=== PATIENT | female | born 1945 | race Caucasian/White ===

== ENCOUNTER 2025-08-13 15:02 | Observation (INO) | payer OTHER ==
[2025-08-13] MEDS ORDERED: METHOCARBAMOL 500 MG TABLET ONE (16:18)
[2025-08-13] MEDS ORDERED: LIDOCAINE 5% TOPICAL PATCH ONE (16:19)
[2025-08-13 16:40] LABS: ABSOLUTE IMMATURE GRANULOCYTES 0.02 x10^3/uL (0.0-0.031); BASOPHILS # 0.01 x10^3/uL (0.01-0.08); EOSINOPHIL % 0.0 % (0.7-5.8); EOSINOPHILS # 0.00 x10^3/uL (0.04-0.36); MCHC 31.5 g/dl (32.2-35.5); MEAN CELL VOLUME 95.4 fl (79.4-94.8); MEAN PLT VOLUME 10.4 fl (9.4-12.3); MONOCYTE # 1.20 x10^3/uL (0.24-0.86); MONOCYTE % 11.5 % (4.7-12.5); RDW 13.4 % (12.4-16.6)
[2025-08-13] MEDS: METHOCARBAMOL 500 MG TABLET PO ONE (16:40)
[2025-08-13] MEDS: LIDOCAINE 5% TOPICAL PATCH TP ONE (16:40)
[2025-08-13 17:02] LABS: GLUCOSE,RANDOM 128.0 mg/dL (74-106); TOT PROT 8.3 g/dl (6.4-8.2)
[2025-08-13 17:03] LABS: CO2 26.0 mmol/L (21-32)
[2025-08-13 17:05] LABS: ALK PHOS 67.0 U/L (40-150)
[2025-08-13 17:08] LABS: CREATININE 1.9 mg/dL (0.55-1.3); SGOT/AST 23.0 U/L (5-34); SGPT/ALT 13.0 U/L (0-55)
[2025-08-13 18:40] LABS: URINE APPEARANCE CLEAR; URINE BILIRUBIN NEGATIVE (NEGATIVE); URINE COLOR YELLOW; URINE GLUCOSE (UA) NEGATIVE (NEGATIVE); URINE KETONE NEGATIVE (NEGATIVE); URINE LEUK ESTERASE NEGATIVE (NEGATIVE); URINE NITRITE NEGATIVE (NEGATIVE); URINE PROTEIN NEGATIVE (NEGATIVE); URINE UROBILINOGEN 0.2 mg/dL (0.2-1.0)
[2025-08-13] MEDS ORDERED: MORPHINE SULFATE 2 MG/ML SYRINGE IVPUSH PRN (20:54)
[2025-08-13 22:32] VITALS: RESP 18
[2025-08-13] MEDS: SODIUM CHLORIDE 1,000 ML IV SCH (22:36)
[2025-08-13] MEDS: ATORVASTATIN CA 10 MG TABLET (FP) PO SCH (22:36)
[2025-08-13] MEDS: LIDOCAINE PATCH REMOVAL MC SCH (22:37)
[2025-08-13] MEDS: HEPARIN NA (PORCINE) 5,000 UNITS/ML 1ML VIAL SQ SCH (22:37)
[2025-08-13] MEDS: ACETAMINOPHEN 1000 MG/100 ML BAG IVPB SCH (22:37)
[2025-08-14 02:00] VITALS: BMI 28.1
[2025-08-14 09:32] LABS: ABSOLUTE IMMATURE GRANULOCYTES 0.03 x10^3/uL (0.0-0.031); BASOPHILS # 0.01 x10^3/uL (0.01-0.08); EOSINOPHIL % 0.7 % (0.7-5.8); EOSINOPHILS # 0.06 x10^3/uL (0.04-0.36); MCHC 31.2 g/dl (32.2-35.5); MEAN CELL VOLUME 95.7 fl (79.4-94.8); MEAN PLT VOLUME 10.7 fl (9.4-12.3); MONOCYTE # 0.78 x10^3/uL (0.24-0.86); MONOCYTE % 9.1 % (4.7-12.5); RDW 13.4 % (12.4-16.6)
[2025-08-14 09:46] VITALS: BP 98/41; PULSE 66; TEMP 97.7
[2025-08-14] MEDS ORDERED: ENOXAPARIN NA (PORCINE) 40 MG/0.4 ML DISP.SYRIN SQ SCH (10:00)
[2025-08-14 11:27] LABS: GLUCOSE,RANDOM 150.0 mg/dL (74-106); TOT PROT 6.5 g/dl (6.4-8.2)
[2025-08-14 11:28] LABS: CO2 23.0 mmol/L (21-32)
[2025-08-14 11:30] LABS: ALK PHOS 51.0 U/L (40-150)
[2025-08-14 11:32] LABS: LDH 147.0 U/L (84-246); SGPT/ALT 10.0 U/L (0-55)
[2025-08-14 11:33] LABS: CREATININE 2.1 mg/dL (0.55-1.3); SGOT/AST 23.0 U/L (5-34)
== END 2025-08-14 14:28 | disposition home or self-care (01) ==
LOC: JER 15:02 → JERBED 19:06 → J5S 20:59
PROVIDERS: ADMIT Student in an Organized Health Care Education/Training Program
PROC: 3E033NZ Introduction of Analgesics, Hypnotics, Sedatives into Peripheral Vein, Percutaneous Approach (ICD-10-PCS; principal; 2025-08-13)
PROC: 3E023GC Introduction of Other Therapeutic Substance into Muscle, Percutaneous Approach (ICD-10-PCS; 2025-08-13)
PROC: 3E033NZ Introduction of Analgesics, Hypnotics, Sedatives into Peripheral Vein, Percutaneous Approach (ICD-10-PCS; 2025-08-13)
PROC: 3E0337Z Introduction of Electrolytic and Water Balance Substance into Peripheral Vein, Percutaneous Approach (ICD-10-PCS; 2025-08-13)
DX: M54.50 Low back pain, unspecified (principal); E78.5 Hyperlipidemia, unspecified; I10 Essential (primary) hypertension; Z85.51 Personal history of malignant neoplasm of bladder; I87.2 Venous insufficiency (chronic) (peripheral); Z88.0 Allergy status to penicillin
CPT/HCPCS: 36415; 72131-TC; 80053; 81003; 82550; 83615; 83690; 83735; 84100; 85025; 85651; 86140; 87086; 96361; 96372; 96374; 96375; 96376; 97116-GP; 97161-GP; 99285-25; G0378